=== PATIENT | male | born 2000 | race Caucasian/White ===

== ENCOUNTER 2024-01-03 16:13 | Emergency (ER) | payer BC, SELFPAY ==
[2024-01-03 16:20] VITALS: BP 124/63; PULSE 75; RESP 16; TEMP 37; O2SAT 98
[2024-01-03 16:32] VITALS: BP 124/63; PULSE 75; RESP 16; TEMP 37; O2SAT 98
--- NOTE | 2024-01-03 16:40 | ED.URI ---
HPI - URI/Sore Throat General Chief Complaint: Upper Respiratory Infection Stated Complaint: head/throat Time Seen by Provider: 01/03/24 16:32 Source: patient and RN notes reviewed Mode of arrival: ambulatory Limitations: no limitations History of Present Illness HPI Narrative: Patient presents today complaining of a 5 day history of sore throat with headache that started today. Currently rates pain 7/10 and has tried ibuprofen, Mucinex, Zyrtec without much relief. Pain increases with swallowing. He is a nonsmoker. Denies any sick contacts. Related Data Home Medications Medication Instructions Recorded Confirmed No Home Medications 01/03/24 01/03/24 Allergies Allergy/AdvReac Type Severity Reaction Status Date / Time No Known Allergies Allergy Verified 01/03/24 16:15 Review of Systems Review of Systems: CONSTITUTIONAL: Denies body aches, fever, chills, or sweats. EYES: Denies visual changes, redness, or discharge. ENT: Denies rhinorrhea, congestion, or otalgia.+ sore throat CARDIOVASCULAR: Denies chest pain, palpitations, or edema. RESPIRATORY: Denies cough or dyspnea. GASTROINTESTINAL: Denies abdominal pain, nausea, vomiting, or diarrhea. GENITOURINARY: Denies dysuria or hematuria. SKIN: Denies rash, itching, or wounds. MUSCULOSKELETAL: Denies back pain, joint pain, or myalgia. NEUROLOGIC: Denies numbness, tingling, or weakness.+ headache PSYCH: Denies depression or anxiety. PMFSH Comments At time of signature, I have reviewed and agree with nursing past medical, surgical, social and family history unless otherwise noted. Please see nursing chart for further information. There is no relevant family history pertinent to the presenting complaint Exam Narrative: GENERAL: Well-appearing, well-nourished, and in no acute distress. HEAD: Normocephalic, atraumatic. EYES: EOMI. No redness or drainage. Conjunctivae normal. ENT: Mucous membranes pink and moist. Nares clear. No rhinorrhea. TMs normal bilaterally. Throat normal. Uvula midline. NECK: Normal AROM. Supple. No lymphadenopathy. CHEST: No respiratory distress. Clear to auscultation. HEART: Regular rate and rhythm. No murmur appreciated. EXTREMITIES: Normal range of motion. No edema. SKIN: Warm, dry, no rash. Capillary refill normal. Normal skin turgor. NEURO: No focal deficits. Alert and oriented x3. Gait steady. PSYCH: Normal affect. No signs of depression or anxiety. Course Course Level of Care: Express Care Visit Vital Signs Vital signs: Vital Signs Temperature 98.6 F 01/03/24 16:20 Pulse Rate 75 01/03/24 16:20 Respiratory Rate 16 01/03/24 16:20 Blood Pressure 124/63 01/03/24 16:20 Pulse Oximetry 98 01/03/24 16:20 Oxygen Delivery Room Air 01/03/24 16:20 Temperature 98.6 F 01/03/24 16:32 Pulse Rate 75 01/03/24 16:32 Respiratory Rate 16 01/03/24 16:32 Blood Pressure 124/63 01/03/24 16:32 Pulse Oximetry 98 01/03/24 16:32 Oxygen Delivery Room Air 01/03/24 16:32 Reviewed MDM - URI/Sore Throat MDM Narrative Medical decision making narrative: Rapid strep negative. Culture pending. Symptoms likely viral in etiology. Discussed [id number] medication use and duration illness. No prescription medications indicated at this time. Anticipatory guidance given. Differential Diagnosis Differential diagnosis: Likely upper respiratory infection, viral infection, pharyngitis and other (Strep throat) Lab Data Attestation: I reviewed the patient's lab results. Lab results narrative: Rapid strep negative Critical Care Time Critical Care Time Critical Care Time: No Discharge Plan Discharge Clinical Impression: Viral syndrome Patient Disposition: Home, Self-Care Condition: Stable Instructions: Viral Syndrome (ED) Additional Instructions: Your rapid strep swab was negative today at [facility]. You will be notified in a few days if the culture comes back positive f
[2024-01-03 16:47] LABS: EDSTREPNEGPOS1 Presumptive Negative
== END 2024-01-03 16:48 | disposition home or self-care (01) ==
PROVIDERS: Emergency Provider Nurse Practitioner; PCP Family Medicine
DX: B34.9 Viral infection, unspecified (principal)
CPT/HCPCS: 87081; 87880; 99213; G0463